=== PATIENT | female | born 1955 | race Caucasian/White ===

== ENCOUNTER 2023-12-30 06:01 | Emergency (ER) | payer BC, SELFPAY ==
[2023-12-30 06:19] VITALS: BP 159/104
== END 2023-12-30 06:50 | disposition left against medical advice (07) ==
LOC: EMR 06:01
PROVIDERS: EMERGENCY PHYSICIAN Emergency Medicine
DX: R00.2 Palpitations (principal); Z53.21 Procedure and treatment not carried out due to patient leaving prior to being seen by health care provider
CPT/HCPCS: 93005